=== PATIENT | male | born 1965 ===

== ENCOUNTER 2017-03-19 18:49 | Emergency (ER) | payer SELFPAY ==
[2017-03-19 21:01] VITALS: BP 140/96; PULSE 100; RESP 18; TEMP 98.9; O2SAT 98
== END 2017-03-19 20:57 | disposition left against medical advice (07) ==
LOC: SUPCPDRO 18:49 → C.ER 18:49
DX: Z02.89 Encounter for other administrative examinations (principal); F10.10 Alcohol abuse, uncomplicated